=== PATIENT | female | born 1990 | race American Indian/Alaskan Native ===

== ENCOUNTER 2020-02-01 09:08 | Emergency (ER) | payer SELFPAY ==
[2020-02-01 09:17] VITALS: BP 127/80
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
[2020-02-01] MEDS ORDERED: ACETAMINOPHEN 500 MG TAB PO ONE (10:45)
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
== END 2020-02-01 10:57 | disposition home or self-care (01) ==
LOC: ED 09:08
DX: S40.811A Abrasion of right upper arm, initial encounter (principal); M79.641 Pain in right hand; S29.012A Strain of muscle and tendon of back wall of thorax, initial encounter; Z79.899 Other long term (current) drug therapy; V49.49XA Driver injured in collision with other motor vehicles in traffic accident, initial encounter; Y93.89 Activity, other specified; Y92.488 Other paved roadways as the place of occurrence of the external cause; Y99.8 Other external cause status
CPT/HCPCS: 99283